=== PATIENT | male | born 1985 | race Caucasian/White ===

== ENCOUNTER 2017-03-14 13:54 | Emergency (ER) | payer SELFPAY ==
[2017-03-14] MEDS ORDERED: LIDOCAINE HCL 20 ML UDC MM ONE (14:31)
--- NOTE | 2017-03-14 14:37 | ERNOTE ---
ENT HPI Date of Service: 03/14/17 Time Seen by Provider: 03/14/17 14:26 - Immun/Allergies/Home Medications Immunizations: IMMUNIZATION HX Immunizations Up to Date Yes History of Influenza Vaccine No Allergies/Adverse Reactions: Allergies Allergy/AdvReac Type Severity Reaction Status Date / Time No Known Allergies Allergy Unverified 03/14/17 14:08 Home Medications: HOME MEDICATIONS NK [No Home Medication] 03/14/17 [Last Taken Unknown] - History of Present Illness Narrative: Pt. comes in with c/o sore throat for five days. Pt. denies any SOB, CP, but does states that he has had a fever, nasal congestion and LUQ abd pain. Pt states aht he took some cough drops for the pain without relief. Review of Systems - Review of Systems Constitutional: Present: fever, chills, fatigue, malaise EYE: Present: no symptoms reported ENT: Present: ear pain, nose congestion, sore throat Respiratory: Present: no symptoms reported. Absent: shortness of breath, cough , wheezing Cardiology: Present: no symptoms reported. Absent: chest pain, palpitations, edema Gastrointestinal/Abdominal: Present: abdominal pain - LUQ. Absent: nausea, vomiting, diarrhea Genitourinary: Present: no symptoms reported Musculoskeletal: Present: no symptoms reported. Absent: back pain, neck pain, joint pain Skin: Present: no symptoms reported Neurological: Present: no symptoms reported. Absent: headache, dizziness/light- headedness, numbness, tingling All Other Systems: All systems neg except as marked - Patient's Past Medical History Patient History - Medical: No pertinent hx Patient History - Cardiac/Respiratory: No pertinent hx Patient History - Cancer: No Hx of Cancer Patient History - Surgical Procedures: No surgical history Patient History - Other: None - Social History Living Situations: home Psych History: No pertinent hx Smoking Status: Current every day smoker Have you smoked in the past 12 months: Yes Alcohol Use: none Drug Use: none - Immunizations Immunizations Up to Date: Yes History of Influenza Vaccine: No Physical Exam - Physical Exam General Appearance: Present: wd/wn, alert, no apparent distress Eye Exam: Normal inspection: bilateral, PERRL: bilateral, EOMI: bilateral Ears, Nose, Throat: Present: normal except -, pharyngeal erythema, pharyngeal swelling. Absent: nasal congestion, sinus pain/drainage, tonsillar exudate Neck: Present: lymphadenopathy (R) - submandibular anterior cervicle chain, lymphadenopathy (L) - submandibular anterior cervicle chain Respiratory: Present: no respiratory distress, normal breath sounds, no accessory muscle use, chest nontender, lungs clear Cardiovascular/Chest: Present: regular rate, rhythm, no murmur, normal peripheral pulses Gastrointestinal/Abdominal: Present: normal bowel sounds, nontender, nondistended, soft, no organomegaly Back Exam: Present: normal inspection, normal range of motion, no CVA tenderness , no vertebral tenderness Extremity Exam: Present: normal inspection, non-tender, normal range of motion, no edema Neurological Exam: Present: alert, oriented, normal mood/affect, no motor/ sensory deficits Skin Exam: Present: warm/dry, pallor ED Progress - Results and Orders Patient's Lab Results:: I have reviewed the patient's lab results. - Vital Signs Patient's Vital Signs:: I have reviewed the patient's vital signs. Vital Signs: Vital Signs 03/14/17 14:03 Temperature 37.0 C Pulse Rate 108 H Respiratory 16 Rate Blood Pressure 99/49 O2 Sat by Pulse 100 Oximetry - Progress/Reassessment Chief Complaint: Sore Throat Departure Clinical Impression: Pharyngitis Qualifiers: Pharyngitis/tonsillitis etiology: unspecified etiology Qualified Code(s): J02.9 - Acute pharyngitis, unspecified - Departure Disposition: Home self-care Condition: Good Instructions: Upper Respiratory Infection, Adult, [id number] Additional Instructions: Please take Ibuprofen 600 mg every six hours for pain and inflammation and take chloreseptic for throat pain.
[2017-03-14 19:32] VITALS: BP 124/83
== END 2017-03-14 14:55 | disposition home or self-care (01) ==
LOC: ER 13:54
DX: J02.9 Acute pharyngitis, unspecified (principal); Z72.0 Tobacco use